=== PATIENT | female | born 1935 | race Caucasian/White ===

== ENCOUNTER 2018-08-06 07:35 | Day surgery (SDC) | payer MEDICARE, SELFPAY ==
[2018-08-06 08:46] VITALS: BP 138/84; PULSE 98; RESP 15; TEMP 36.3; O2SAT 95; BMI 20.5
[2018-08-06] MEDS: PROPARACAINE 0.5% OPHTH SOL 2 DROPS EYE-OP (08:47)
[2018-08-06] MEDS: CATARACT EYE COMPOUND (10 DROPS/SYRINGE) 3 DROPS EYE-OP (09:00)
--- NOTE | 2018-08-06 09:45 | P.OP.PRE_ITS ---
Pre-operative Note Interval Note Changes: No
--- NOTE | 2018-08-06 09:45 | PM.PREOP ---
Pre-operative Note Interval Note Changes: No
--- NOTE | 2018-08-06 09:46 | P.OP_ITS ---
Operative Date/Time/Diagnoses Pre-op diagnosis: Cataract Right eye Post-op diagnosis: same Procedure & Clinicians Procedure: Cataract Surgery Same procedure as scheduled: Yes Surgeon: Evgeny Hennessy Anesthesia Type: MAC +/- and Sedation Operative Notes Procedure in detail: Patient brought to the operating suite. Tetracaine drops placed in the right eye. Patient was prepped and draped in sterile manner. Wire lid speculum was placed in the eye. Betadine drops were placed on the eye. This was irrigated. Lidocaine jelly was placed on the eye. A paracentesis port was created with a side-port blade. 0.1 mL 1% preservative free lidocaine was injected into the anterior chamber. The anterior chamber was deepened with viscoelastic. 2.6 mm keratome was used to create a temporal clear corneal incision. Cystotome and Utrata forceps were used to create continuous tear capsulorrhexis. Balanced salt solution was used to hydro dissect the nucleus. The phacoemulsification handpiece was inserted and the nucleus was removed using the stop and chop technique. The irrigation aspiration handpiece was inserted and the remaining cortex was removed. Anterior chamber was deepened with viscoelastic. An Castorena ZCB00 intraocular lens with a power of 20.5 was injected into the capsular bag. Irrigation aspiration handpiece was inserted and the remaining viscoelastic was removed. Incision was hydrated with balanced salt solution and found to be leak free with pressure with Weck- Vira sponges. 0.1 mL Vigamox injected anterior chamber. 0.3 mL Kenalog 10 mg was injected subconjunctivally. Lid speculum was removed. The patient left the operating room in excellent condition. Complications: none Condition: stable Disposition: same day surgery
--- NOTE | 2018-08-06 09:54 | SUR.OPER ---
Supine on eye stretcher, head on extension cradle secured with tape. Arms tucked at sides with blanket. Pillow under knees.
[2018-08-06] MEDS: PHENYLEPHRINE/LIDOCAINE VIAL (OR) 0.2 ML EYE-OP (09:58)
[2018-08-06] MEDS: MOXIFLOXACIN OPHTH DROPS 3 ML BOTTLE 2 DROPS INJ (09:58)
[2018-08-06] MEDS: LIDOCAINE JELLY 2% 5 ML 1 APPLIC TOP (09:59)
[2018-08-06] MEDS: TRIAMCINOLONE 50 MG/5 ML VIAL INJ (09:59)
[2018-08-06] MEDS: CHONDROIDTIN/SOD HYALURONATE 1.05 ML SYRINGE INTRAOCULA (09:59)
[2018-08-06] MEDS: BALANCED SALT IRRIG SOLN NO.2 500 ML, EPINEPHrine 1 MG IRR (10:00)
[2018-08-06] MEDS: TETRACAINE 0.5% OPHTH DROPS 15 ML 2 DROPS EYE-RIGHT (10:00)
[2018-08-06 10:12] VITALS: BP 124/73; PULSE 88; RESP 16; TEMP 36.7; O2SAT 98
[2018-08-06 10:25] VITALS: BP 121/74; PULSE 97; RESP 18; O2SAT 96
--- NOTE | 2018-08-06 10:33 | SUR.PHASEII ---
pt pleasant and cooperative. denies any complaints. dressed herself and has a coffee to go . d/trish with volunteer in wheelchair.
== END 2018-08-06 10:33 ==
LOC: OR 07:36
PROVIDERS: PCP Family Medicine; Visit Provider Ophthalmology
DX: H25.11 Age-related nuclear cataract, right eye (principal); I49.9 Cardiac arrhythmia, unspecified
CPT/HCPCS: J0171; J2250; J3010; J3301

== ENCOUNTER 2018-08-20 10:02 | Day surgery (SDC) | payer MEDICARE, SELFPAY ==
[2018-08-20 11:32] VITALS: BP 139/70; PULSE 73; RESP 16; TEMP 36.2; O2SAT 96; BMI 20.6
[2018-08-20] MEDS: PROPARACAINE 0.5% OPHTH SOL 2 DROPS EYE-OP (11:41)
[2018-08-20] MEDS: CATARACT EYE COMPOUND (10 DROPS/SYRINGE) 3 DROPS EYE-OP (11:50)
--- NOTE | 2018-08-20 12:23 | P.OP.PRE_ITS ---
Pre-operative Note Interval Note Changes: No
--- NOTE | 2018-08-20 12:23 | PM.PREOP ---
Pre-operative Note Interval Note Changes: No
--- NOTE | 2018-08-20 12:24 | P.OP_ITS ---
Operative Date/Time/Diagnoses Pre-op diagnosis: Cataract Left eye Post-op diagnosis: same Procedure & Clinicians Surgeon: Evgeny Hennessy Anesthesia Type: MAC +/- and Sedation Operative Notes Procedure in detail: Patient brought to the operating suite. Tetracaine drops placed in the left eye. Patient was prepped and draped in sterile manner. Wire lid speculum was placed in the eye. Betadine drops were placed on the eye. This was irrigated. Lidocaine jelly was placed on the eye. A paracentesis port was created with a side-port blade. 0.1 mL 1% preservative free lidocaine was injected into the anterior chamber. The anterior chamber was deepened with viscoelastic. 2.6 mm keratome was used to create a temporal clear corneal incision. Cystotome and Utrata forceps were used to create continuous tear capsulorrhexis. Balanced salt solution was used to hydro dissect the nucleus. The phacoemulsification handpiece was inserted and the nucleus was removed using the stop and chop technique. The irrigation aspiration handpiece was inserted and the remaining cortex was removed. Anterior chamber was deepened with viscoelastic. An Castorena ZCB00 intraocular lens with a power of 20.5 was injected into the capsular bag. Irrigation aspiration handpiece was inserted and the remaining viscoelastic was removed. Incision was hydrated with balanced salt solution and found to be leak free with pressure with Weck- Vira sponges. 0.1 mL Vigamox injected anterior chamber. 0.3 mL Kenalog 10 mg was injected subconjunctivally. Lid speculum was removed. The patient left the operating room in excellent condition. Complications: none Condition: stable Disposition: same day surgery
[2018-08-20] MEDS: LIDOCAINE JELLY 2% 5 ML 1 APPLIC TOP (12:38)
[2018-08-20] MEDS: CHONDROIDTIN/SOD HYALURONATE 1.05 ML SYRINGE INTRAOCULA (12:38)
[2018-08-20] MEDS: MOXIFLOXACIN OPHTH DROPS 3 ML BOTTLE 2 DROPS INJ (12:38)
[2018-08-20] MEDS: PHENYLEPHRINE/LIDOCAINE VIAL (OR) 0.2 ML EYE-OP (12:38)
[2018-08-20] MEDS: TETRACAINE 0.5% OPHTH DROPS 15 ML 2 DROPS EYE-LEFT (12:39)
[2018-08-20] MEDS: BALANCED SALT IRRIG SOLN NO.2 500 ML, EPINEPHrine 1 MG IRR (12:39)
[2018-08-20] MEDS: TRIAMCINOLONE 50 MG/5 ML VIAL INJ (12:39)
[2018-08-20 12:59] VITALS: BP 120/74; PULSE 92; RESP 16; TEMP 36.7; O2SAT 96
== END 2018-08-20 13:08 ==
PROVIDERS: PCP Family Medicine; Visit Provider Ophthalmology
DX: H25.12 Age-related nuclear cataract, left eye (principal)
CPT/HCPCS: J0171; J2250; J3010; J3301

== ENCOUNTER → 2018-12-30 12:12 | Outpatient (CLI) | payer MEDICARE, SELFPAY ==
--- NOTE | 2018-12-30 | DI.US.S_ITS ---
PROCEDURE: US ABDOMEN COMPLETE INDICATIONS: PELVIC MASS TECHNIQUE: Real-time scanning was performed of the abdominal and retroperitoneal organs, with image documentation. COMPARISON: [facility], CT, ABDOMEN/PELVIS WITH CONTRAST, 12/08/2013, 11:53. FINDINGS: Liver: Liver is normal in size and homogeneous in echotexture. Gallbladder: Removed. Biliary ducts: Intrahepatic bile ducts are non-dilated. Extrahepatic bile duct caliber measures 7 mm. Normal is 6-7 mm or less in diameter, or 10 mm or less post-cholecystectomy. Pancreas: Visualized portions of the pancreas are sonographically normal. Spleen: Spleen is normal in size and homogeneous in echotexture. Kidneys: Kidneys are normal in size and echotexture. Right kidney measures 9.7 cm long; left kidney measures 10.4 cm long. No hydronephrosis or nephrolithiasis. No solid masses. The renal cortex measures within normal limits for thickness. Aorta: Visualized aorta is normal in caliber at less than 3 cm. Iliacs: Proximal common iliac arteries are normal in caliber at less than 2.5 cm. IVC: Intrahepatic inferior vena cava is patent. Miscellaneous: No free abdominal fluid. IMPRESSION: No masses are seen. Status post cholecystectomy, without biliary dilatation. Dictated by: Mo Herndon M.D. on 12/30/2018 at 12:11 Approved by: Mo Herndon M.D. on 12/30/2018 at 12:11
--- NOTE | 2018-12-30 | DI.US.S_ITS ---
PROCEDURE: US PELVIC COMPLETE INDICATIONS: PELVIC MASS TECHNIQUE: Real-time scanning was performed of the pelvic organs, with image documentation. Additional endovaginal scanning was necessary due to incomplete visualization of the adnexal and endometrial structures by transabdominal scanning. COMPARISON: [facility], , US ABDOMEN COMPLETE, 12/30/2018, 12:39. FINDINGS: Transabdominal scanning: Limited scanning through the kidneys shows no hydronephrosis. No pathologic free abdominal or pelvic fluid. Endovaginal scanning: Uterus: Prior hysterectomy. Ovaries: Ovaries not identified. No adnexal masses seen. IMPRESSION: Limited exam demonstrating no sonographically visible pelvic mass. If indicated CT could be performed for further assessment. Dictated by: Inocente Gibson [facility] Interpreted: Luca Ford MD on 12/30/2018 at 13:36 Approved by: Luca Ford M.D. on 12/30/2018 at 14:19
== END ==
PROVIDERS: PCP Family Medicine; Visit Provider Family Medicine
DX: R19.07 Generalized intra-abdominal and pelvic swelling, mass and lump (principal); Z90.49 Acquired absence of other specified parts of digestive tract; Z90.710 Acquired absence of both cervix and uterus
CPT/HCPCS: 76700; 76830; 76856

== ENCOUNTER → 2019-09-01 14:37 | Outpatient (CLI) | payer MEDICARE, SELFPAY ==
--- NOTE | 2019-09-01 | DI.ECHO.S_ITS ---
[place] [facility]---------+ [facility] +---------+ : : [address] : [place] [address] : : : : [id number] : : : : Phone: [phone]+ Echocardiogram Report + + :Name: JANICE CORTEZ Study Date: 09/01/2019 Height: 64 in : :[facility] Weight: 119 lb : : Gender: Female BSA: 1.6 m2 : :: 1935 Age: 84 yrs BP: 130/70 mmHg: :Reason For Study: Atrial fibrillation : : Performed By: Cailin Tovar : :Referring: NESTOR GIVENS : + + Interpretation Summary The left ventricle is normal in size. Left ventricular ejection fraction is estimated to be 55 +/- 5%. The right ventricle is grossly normal size. The right ventricular systolic function is normal. The left atrium is severely dilated. There is mild to moderate mitral regurgitation. There is mild to moderate aortic regurgitation. The right ventricular systolic pressure is estimated to be at least 26 mmHg based on an estimated right atrial pressure of 3 mm Hg. Procedure: A two-dimensional transthoracic echocardiogram with color flow and Doppler was performed. The study quality was technically adequate. There is no prior echocardiogram noted for this patient. The patient was in atrial fibrillation with heart rates between 78-112 bpm during the exam. Left Ventricle: The left ventricle is normal in size. There is normal left ventricular wall thickness. There is no thrombus. Left ventricular ejection fraction is estimated to be 55 +/- 5%. There are no focal wall motion abnormalities. Diastolic function could not be accurately assessed due to atrial fibrillation. Right Ventricle: The right ventricle is grossly normal size. The right ventricular systolic function is normal. Atria: The left atrium is severely dilated. The right atrium is moderately dilated. The interatrial septum is intact with no evidence for an atrial septal defect. Mitral Valve: The mitral valve leaflets appear mildly thickened, but open well. There is mild to moderate mitral regurgitation. Aortic Valve: The aortic valve is trileaflet. The aortic valve opens well. The aortic valve is mildly calcified. There is no aortic valve stenosis. There is mild to moderate aortic regurgitation. Tricuspid Valve: The tricuspid valve is normal in structure and function. There is trace tricuspid regurgitation. The right ventricular systolic pressure is estimated to be at least 26 mmHg based on an estimated right atrial pressure of 3 mm Hg. Pulmonic Valve: The pulmonic valve is not well seen, but is grossly normal. There is trace pulmonic regurgitation. Great Vessels: The aortic root is normal size. The ascending aorta could not be visualized. The aortic arch is normal in size. The IVC is of normal diameter and collapses greater than 50% with a sniff. This suggests a low right atrial pressure of 3 mm Hg. Pericardium/ Pleura There is no pericardial effusion. There is no pleural effusion. MMode/2D Measurements & Calculations LVIDd: 4.5 cm Ao root diam: 3.1 cm LVIDs: 3.4 cm Aortic Jxn: 2.5 cm FS: 25.1 % Ao Arch Diam (Prox Trans): 2.9 cm EPSS: 0.75 cm IVSd: 0.95 cm LVPWd: 0.99 cm LV grier. diameter/BSA (cm/m^2): 2.9 LV sys. diameter/BSA (cm/m^2): 2.2 LA dimension: 3.9 cm RA long axis: 5.4 cm LA A2 area: 23.4 cm2 RA area: 20.9 cm2 LA A4 area: 23.2 cm2 RA vol: 68.8 ml LA length (vol): 5.4 cm RA : 43.9 ml/m2 LA vol: 84.8 ml IVC diam: 1.1 cm LA vol index: 54.0 ml/m2 RVDd major: 6.1 cm RVD1 (basal): 3.7 cm RVD2 (mid): 3.0 cm Doppler Measurements & Calculations Ao V2 max: 165.1 cm/sec AI P1/2t: 451.9 msec Ao V2 mean: 112.7 cm/sec AI dec slope: 244.4 cm/sec2 Ao max P.9 mmHg Ao mean P.8 mmHg Ao V2 VTI: 33.1 cm MV E max dora: 105.8 cm/sec TR max dora: 240.7 cm/sec MV A max dora: 36.3 cm/sec TR max P.2 mmHg MV E/A: 2.9 PA V2 max: 85.1 cm/sec MV dec time: 0.20 sec PA V2 mean: 60.7 cm/sec MV P1/2t: 58.1 msec PA mean P.6 mmHg PA Accel Time: 0.11 sec MV P1/2t max dora: 106.1 cm/sec MVA(P1/2t): 3.8 cm2 Reading Physician:10:48 AM
== END ==
PROVIDERS: PCP Family Medicine; Visit Provider Internal Medicine Cardiovascular Disease
DX: I08.0 Rheumatic disorders of both mitral and aortic valves; I48.20 Chronic atrial fibrillation, unspecified
CPT/HCPCS: 93306

== ENCOUNTER → 2019-12-02 12:43 | Outpatient (CLI) | payer MEDICARE, SELFPAY ==
--- NOTE | 2019-12-02 | DI.RAD.S_ITS ---
PROCEDURE: XR CHEST 2V INDICATIONS: COUGH TECHNIQUE: 2 views of the chest were acquired. COMPARISON: None. FINDINGS: Surgical changes and devices: None. Lungs and pleura: Lungs are clear. No pleural effusions or pneumothorax. Lungs are hyperinflated with mild flattening of the hemidiaphragms. Mediastinum: Mediastinal contours are normal. Heart size is normal. Bones and chest wall: No suspicious bony abnormalities. Soft tissues appear unremarkable. IMPRESSION: Hyperinflation suggestive of COPD. Dictated by: Elizabeth Villela M.D. on 12/02/2019 at 16:20 Approved by: Elizabeth Villela M.D. on 12/02/2019 at 16:22
[2019-12-02 13:22] LABS: Alanine Aminotransferase 20 IU/L (<35); Albumin 4.5 g/dL (3.5-5.0); Albumin Globulin Ratio 1.5 (1.0-2.8); Alkaline Phosphatase 83 U/L (38-126); Aspartate Aminotransferase 29 IU/L (14-36); BUN Creatinine Ratio 18.3 (6-22); Bilirubin Total 0.6 mg/dL (0.2-1.3); Blood Urea Nitrogen 11 mg/dL (7-17); Calcium 9.5 mg/dL (8.4-10.2); Carbon Dioxide 31 mmol/L (22-32); Chloride 100 mmol/L (98-107); Estimated Glomerular Filt Rate > 60.0 mL/min (>60); Globulin 3.1 g/dL (1.7-4.1); Glucose 97 mg/dL (80-110); HEMOLYSIS < 15 (0-50); Potassium 3.7 mmol/L (3.4-5.1); Sodium 138 mmol/L (137-145); Total Protein 7.6 g/dL (6.3-8.2)
--- NOTE | 2019-12-02 13:45 | DI.CT.S_ITS ---
PROCEDURE: CT ABDOMEN PELVIS W CON INDICATIONS: Unspecified abdominal pain TECHNIQUE: After the administration of oral and intravenous contrast, 5 mm thick sections acquired from the diaphragms to the symphysis. 5 mm thick coronal and sagittal reformats were performed. For radiation dose reduction, the following was used: automated exposure control, adjustment of mA and/or kV according to patient size. COMPARISON: [facility], CT, ABDOMEN/PELVIS WITH CONTRAST, 12/08/2013, 11:53. FINDINGS: Image quality: Excellent. ABDOMEN: Lung bases: Scattered subsegmental atelectasis and/or scarring. No focal consolidation. Heart size is enlarged. Solid organs: Hepatic steatosis. Diffuse presumed calcified granuloma sequela seen within the liver and spleen Gallbladder surgically absent. Biliary system is non-dilated. However, there is metallic clip present within the distal common bile duct for example image 30/2. This appears new since the prior CT. Pancreas enhances normally. Spleen is normal in size and enhancement. No adrenal nodules. Kidneys are normal in size and enhancement, without hydronephrosis. Peritoneum and bowel: Stomach, small bowel, and colon loops are normal in caliber and wall thickness. Incidental colonic diverticula seen No free fluid or air. Normal appendix. Large amount of stool. Nodes and vessels: No retroperitoneal or mesenteric adenopathy. Aorta and inferior vena cava are normal in caliber. Miscellaneous: No ventral hernias. PELVIS: Genitourinary: Bladder grossly unremarkable. Miscellaneous: No inguinal hernias or adenopathy. Bones: No suspicious bony lesions. No vertebral body compression fractures. Spondylosis and levocurvature of the visualized spine. IMPRESSION: Metallic clip seen within (or closely abutting) the distal common bile duct however minimal if any bile duct dilatation. This may indicate extraluminal location. Finding is new since the prior study, recommend clinical correlation and with LFTs. Hepatic steatosis Normal appendix No bowel obstruction. Large amount of stool Additional chronic and incidental findings as above. Dictated by: Christiano Hatfield M.D. on 12/02/2019 at 14:35 Approved by: Christiano Hatfield M.D. on 12/02/2019 at 14:45
== END ==
PROVIDERS: PCP Family Medicine; Visit Provider Family Medicine
DX: R10.9 Unspecified abdominal pain (principal); R05 Cough; K59.00 Constipation, unspecified; R19.00 Intra-abdominal and pelvic swelling, mass and lump, unspecified site; K57.90 Diverticulosis of intestine, part unspecified, without perforation or abscess without bleeding; K76.0 Fatty (change of) liver, not elsewhere classified; I51.7 Cardiomegaly; Z90.49 Acquired absence of other specified parts of digestive tract
CPT/HCPCS: 36415; 71046; 74177; 80053

== ENCOUNTER → 2020-01-01 10:17 | Outpatient (CLI) | payer MEDICARE, SELFPAY ==
--- NOTE | 2020-01-01 10:25 | DI.RAD.S_ITS ---
PROCEDURE: XR ANKLE RT MIN 3V INDICATIONS: RIGHT ANKLE PAIN TECHNIQUE: 3 views of the ankle were acquired. COMPARISON: None. FINDINGS: Bones: No fractures or dislocations. Ankle mortise is normally aligned. No suspicious bony lesions. Soft tissues: No tibiotalar joint effusion. Achilles tendon appears normal. IMPRESSION: No trauma found. Source of pain is not identified. Dictated by: Luca Ford M.D. on 01/01/2020 at 10:47 Approved by: Luca Ford M.D. on 01/01/2020 at 10:48
== END ==
PROVIDERS: PCP Family Medicine; Referring Provider Family Medicine; Visit Provider Family Medicine
DX: M25.571 Pain in right ankle and joints of right foot (principal); G89.29 Other chronic pain
CPT/HCPCS: 73610

== ENCOUNTER → 2021-02-14 11:38 | Outpatient (CLI) | payer MEDICARE, SELFPAY ==
[2021-02-15 09:33] LABS: Alanine Aminotransferase 23 IU/L (<35); Albumin 3.9 g/dL (3.5-5.0); Albumin Globulin Ratio 1.5 (1.0-2.8); Alkaline Phosphatase 71 U/L (38-126); Aspartate Aminotransferase 45 IU/L (14-36); BUN Creatinine Ratio 18.2 (6-22); Bilirubin Total 0.4 mg/dL (0.2-1.3); Blood Urea Nitrogen 12 mg/dL (7-17); Calcium 9.5 mg/dL (8.4-10.2); Carbon Dioxide 31 mmol/L (22-32); Chloride 102 mmol/L (98-107); Estimated Glomerular Filt Rate > 60.0 mL/min (>60); Globulin 2.6 g/dL (1.7-4.1); Glucose 82 mg/dL (80-110); HEMOLYSIS < 15 (0-50); Sodium 140 mmol/L (137-145); Total Protein 6.5 g/dL (6.3-8.2)
[2021-02-15 14:41] LABS: Digoxin < 0.4 ng/mL (0.8-2.0)
== END ==
PROVIDERS: PCP Family Medicine; Visit Provider Internal Medicine Cardiovascular Disease
DX: I48.20 Chronic atrial fibrillation, unspecified (principal)
CPT/HCPCS: 80053; 80162

== ENCOUNTER → 2022-03-02 10:56 | Outpatient (CLI) | payer MEDICARE, SELFPAY ==
[2022-03-02 19:46] LABS: TSH w/ Reflex to FT4 2.32 uIU/mL (0.47-4.68)
[2022-03-02 20:12] LABS: Vitamin B12 558 pg/mL (239-931)
[2022-03-06 14:14] LABS: Albumin 3.8 g/dL (2.9-4.4); Alpha-1-Globulin 0.3 g/dL (0.0-0.4); Alpha-2-Globulin 0.7 g/dL (0.4-1.0); Gamma Globulin 0.8 g/dL (0.4-1.8); Globulin Total 2.8 g/dL (2.2-3.9); Protein, Total 6.6 g/dL (6.0-8.5)
== END ==
PROVIDERS: PCP Family Medicine; Visit Provider Family Medicine
DX: K59.00 Constipation, unspecified (principal); G62.9 Polyneuropathy, unspecified; M25.571 Pain in right ankle and joints of right foot; G89.29 Other chronic pain
CPT/HCPCS: 82607; 84155; 84165; 84443

== ENCOUNTER → 2022-09-20 10:46 | Outpatient (CLI) | payer MEDICARE, SELFPAY ==
[2022-09-20 20:49] LABS: Digoxin 0.5 ng/mL (0.8-2.0)
[2022-09-20 20:58] LABS: Alanine Aminotransferase 35 IU/L (<35); Albumin Globulin Ratio 1.4 (1.0-2.8); Alkaline Phosphatase 79 U/L (38-126); Aspartate Aminotransferase 35 IU/L (14-36); BUN Creatinine Ratio 15.8 (6-22); Bilirubin Total 0.9 mg/dL (0.2-1.3); Blood Urea Nitrogen 12 mg/dL (7-17); Calcium 9.5 mg/dL (8.4-10.2); Carbon Dioxide 31 mmol/L (22-32); Chloride 101 mmol/L (98-107); Cholesterol 146 mg/dL (140-199); Estimated Glomerular Filt Rate > 60 mL/min (>60); Globulin 2.8 g/dL (1.7-4.1); Glucose 92 mg/dL (80-110); HDL Cholesterol 60 mg/dL (40-60); HEMOLYSIS < 15 (0-50); LDL Cholesterol Calculated 74 mg/dL (<100); Sodium 138 mmol/L (137-145); Total Protein 6.8 g/dL (6.3-8.2); Triglycerides 60 mg/dL (35-150)
== END ==
PROVIDERS: PCP Family Medicine; Visit Provider Internal Medicine Cardiovascular Disease
DX: E78.5 Hyperlipidemia, unspecified (principal); I48.92 Unspecified atrial flutter; I48.20 Chronic atrial fibrillation, unspecified
CPT/HCPCS: 80053; 80061; 80162

== ENCOUNTER → 2023-07-10 08:45 | Outpatient (CLI) | payer MEDICARE, SELFPAY ==
[2023-07-10 21:06] LABS: Alanine Aminotransferase 145 IU/L (<35); Albumin 3.5 g/dL (3.5-5.0); Albumin Globulin Ratio 1.3 (1.0-2.8); Alkaline Phosphatase 112 U/L (38-126); Aspartate Aminotransferase 51 IU/L (14-36); BUN Creatinine Ratio 13.8 (6-22); Bilirubin Total 0.7 mg/dL (0.2-1.3); Blood Urea Nitrogen 9 mg/dL (7-17); Calcium 9.3 mg/dL (8.4-10.2); Carbon Dioxide 33 mmol/L (22-32); Chloride 98 mmol/L (98-107); Estimated Glomerular Filt Rate > 60 mL/min (>60); Globulin 2.7 g/dL (1.7-4.1); Glucose 107 mg/dL (80-110); HEMOLYSIS < 15 (0-50); Potassium 3.7 mmol/L (3.4-5.1); Sodium 137 mmol/L (137-145); Total Protein 6.2 g/dL (6.3-8.2)
[2023-07-10 22:12] LABS: Clostridium Difficile Tox PCR Negative for C. diff (Negative)
[2023-07-12 16:51] LABS: C difficie Toxins A and B, EIA Negative (Negative)
== END ==
PROVIDERS: PCP Family Medicine; Visit Provider Family Medicine
DX: E86.0 Dehydration (principal); K52.1 Toxic gastroenteritis and colitis; R19.7 Diarrhea, unspecified; T36.95XA Adverse effect of unspecified systemic antibiotic, initial encounter
CPT/HCPCS: 80053; 87324; 87493

== ENCOUNTER 2023-07-15 13:58 | Emergency (ER) | payer MEDICARE, SELFPAY ==
[2023-07-15 13:59] VITALS: BP 177/92; PULSE 110; RESP 16; TEMP 37.2; O2SAT 97; BMI 20.5
--- NOTE | 2023-07-15 14:05 | DI.RAD.S_ITS ---
PROCEDURE: XR WRIST RT MIN 3V INDICATIONS: fall, rt wrist red and swollen, painful TECHNIQUE: 4 views of the wrist were acquired. COMPARISON: None. FINDINGS: Bones: No fractures or dislocations. No suspicious bony lesions. Advanced degenerative change most pronounced at the 1st CMC joint and DRUJ. Scaphoid view: Intact. Soft tissues: No suspicious soft tissue calcifications. Chondrocalcinosis. IMPRESSION: No acute osseous abnormality. Dictated by: Kee Lozano M.D. on 07/15/2023 at 14:37 Approved by: eKe Lozano M.D. on 07/15/2023 at 14:38
[2023-07-15 14:42] VITALS: PULSE 84
--- NOTE | 2023-07-15 14:53 | ED_ITS ---
HPI - Extremity Injury (Upper) General Chief Complaint: Extremity Injury, Upper Stated Complaint: R/ wrist injury Time Seen by Provider: 07/15/23 14:45 History of Present Illness HPI narrative: 88-year-old female presents for evaluation of right wrist pain and swelling. Patient was taking out the trash when she slipped, falling backwards and landing on her bottom. She states that she caught her fall with her hands, particularly her right hand. Did not hit her head, did not lose consciousness. She is on Eliquis for atrial fibrillation. Patient states that she initially did not notice pain, however several hours later began to notice swelling and worsening pain in her right wrist. She got a wrist brace from a local pharmacy and presented for x-rays to make sure that the wrist was not broken. 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 Related Data Home Medications Medication Instructions Recorded Confirmed apixaban 2.5 mg tablet (Eliquis) 2.5 mg PO BID 03/02/22 07/09/23 atorvastatin 40 mg tablet 40 mg PO DAILY 03/02/22 07/09/23 metoprolol succinate 50 mg See Rx Instructions .Route .COMPLEX 03/02/22 07/09/23 tablet,extended release 24 hr digoxin 125 mcg (0.125 mg) tablet 0.25 mg PO 12/11/22 07/09/23 Previous Rx's Medication Instructions Recorded vancomycin 125 mg capsule 125 mg PO QID #40 caps 07/09/23 Allergies Allergy/AdvReac Type Severity Reaction Status Date / Time codeine Allergy Mild EXTREME Verified 07/09/23 14:45 HEADACHE Review of Systems Review of Systems Narrative: All other systems negative except as marked Musculoskeletal Comments: Reports: Right wrist pain, right wrist swelling Patient History Medical History (Updated 07/15/23 @ 14:54 by Janet Hooker MD) At risk of UTI Cough Postmenopausal HRT (hormone replacement therapy) Screening for breast cancer Screening for osteoporosis Therapeutic drug monitoring Unspecified abdominal pain Urethral caruncle Social History household members: spouse Smoking Status: Never smoker additional social history: lives with her who is in a wheelchair with early Dementia. Daughter name is Melva-she works at [employer] 06/2023 Smoking Status: Never smoker Exam Initial Vital Signs Initial Vital Signs: Vital Signs Temperature 98.9 F 07/15/23 13:59 Pulse Rate 110 H 07/15/23 13:59 Respiratory Rate 16 07/15/23 13:59 Blood Pressure 177/92 H 07/15/23 13:59 Pulse Oximetry 97 07/15/23 13:59 Oxygen Delivery Method Room Air 07/15/23 13:59 Const: Well-nourished, Well-developed, appears stated age Eyes: PERRL, EOMI, conjunctiva normal MSK: Swelling of R wrist, intact sensation, 2+ radial pulses bilaterally Skin: Warm, Dry, intact, moderate swelling of wrist joint Neuro: AO x3, CN II-XII grossly intact, moves all extremities Psych: affect normal, mood normal, not suicidal, not homicidal Course Course Course Narrative: Well appearing patient with wrist pain and swelling fter a fall. XR negative for acute findings. Neurovascularly intact. Already in splint. RICE instructions advised at bedside. ED return precautions discussed at bedside. Patient expressed understanding of the plan and is in agreement at this time. All questions answered at the time of discharge. Orders Ordered: ED Orders 07/15/23 14:05 XR wrist RT min 3V Stat Vital Signs Vital signs: Vital Signs - 8 hr 07/15/23 13:59 07/15/23 14:42 Temperature 98.9 F Pulse Rate 110 H Pulse Rate [Right Brachial] 84 Respiratory Rate 16 Blood Pressure 177/92 H Pulse Oximetry 97 Oxygen Delivery Method Room Air Discharge Plan Departure Patient Disposition: Home Clinical Impression: Sprain and strain of wrist Instructions: DI for Wrist Sprain Prescriptions: No Action triamcinolone acetonide [Kenalog] 40 mg/mL suspension 80 mg intra-articular ONCE Qty: 2 0RF vancomycin 125 mg capsule 125 mg PO QID Qty: 40 0RF Rx Instructions: set alarm to take this medication every 5-6 hours. (4 times per day) Eliquis 2.5 mg tablet 2.5 mg PO BID metoprolol succinate 50 mg tablet extended release 24 hr See Rx Instructions .ROUTE .COMPLEX Rx Instructions: Take one-half tablet QAM and Take One tablet QPM atorvastatin 40 mg tablet 40 mg PO DAILY digoxin 125 mcg (0.125 mg) tablet 0.25 mg PO Referrals: Umair Hahn MD [Primary Care Provider] - Stand Alone Forms: Patient Portal/API
[2023-07-15 14:57] VITALS: BP 168/78; PULSE 80; RESP 17; O2SAT 97
== END 2023-07-15 14:58 | disposition home or self-care (01) ==
PROVIDERS: Emergency Provider Emergency Medicine; PCP Family Medicine
DX: S63.501A Unspecified sprain of right wrist, initial encounter (principal); S66.911A Strain of unspecified muscle, fascia and tendon at wrist and hand level, right hand, initial encounter; W01.0XXA Fall on same level from slipping, tripping and stumbling without subsequent striking against object, initial encounter; Z79.01 Long term (current) use of anticoagulants
CPT/HCPCS: 73110; 99281; 99283

== ENCOUNTER → 2023-08-08 11:29 | Outpatient (CLI) | payer MEDICARE, SELFPAY ==
[2023-08-08 20:47] LABS: BUN Creatinine Ratio 21.6 (6-22); Blood Urea Nitrogen 16 mg/dL (7-17); Calcium 9.7 mg/dL (8.4-10.2); Carbon Dioxide 29 mmol/L (22-32); Chloride 101 mmol/L (98-107); Estimated Glomerular Filt Rate > 60 mL/min (>60); Glucose 96 mg/dL (80-110); HEMOLYSIS 24 (0-50); Potassium 4.1 mmol/L (3.4-5.1); Sodium 137 mmol/L (137-145)
== END ==
PROVIDERS: PCP Family Medicine; Visit Provider Family Medicine
DX: I50.9 Heart failure, unspecified (principal)
CPT/HCPCS: 80048

== ENCOUNTER → 2023-10-02 13:35 | Outpatient (CLI) | payer MEDICARE, SELFPAY ==
[2023-10-02 19:34] LABS: Alanine Aminotransferase 31 IU/L (<35); Albumin 3.7 g/dL (3.5-5.0); Albumin Globulin Ratio 1.4 (1.0-2.8); Alkaline Phosphatase 97 U/L (38-126); Aspartate Aminotransferase 32 IU/L (14-36); Bilirubin Total 0.7 mg/dL (0.2-1.3); Bilirubin Unconjugated 0.4 mg/dL (0.0-1.1); Globulin 2.6 g/dL (1.7-4.1); HEMOLYSIS < 15 (0-50); NT-proBNP (BNP-Adult 18+) 1370 pg/mL (<450); Total Protein 6.3 g/dL (6.3-8.2)
[2023-10-02 19:42] LABS: BUN Creatinine Ratio 17.9 (6-22); Blood Urea Nitrogen 15 mg/dL (7-17); Calcium 9.5 mg/dL (8.4-10.2); Carbon Dioxide 29 mmol/L (22-32); Chloride 99 mmol/L (98-107); Estimated Glomerular Filt Rate > 60 mL/min (>60); Glucose 150 mg/dL (80-110); HEMOLYSIS < 15 (0-50); Sodium 134 mmol/L (137-145)
[2023-10-04 04:08] LABS: HBsAg Screen Negative (Negative); Hepatitis A Antibody IgM Negative (Negative); Hepatitis B Core Antibody Negative (Negative); Hepatitis B Core Antibody IgM Negative (Negative); Hepatitis C Antibody Non Reactive (Non Reactive)
[2023-10-04 16:38] LABS: Hep C Virus Ab w/Reflex Quant NEGATIVE s/c (NEGATIVE); Hepatitis B Surface Antigen NEGATIVE s/c (NEGATIVE)
[2023-10-06 06:19] LABS: Hepatitis B Surf Ab Qualitativ Non Reactive (.)
== END ==
PROVIDERS: Family Medicine; PCP Family Medicine; Visit Provider Family Medicine
DX: R74.01 Elevation of levels of liver transaminase levels (principal); I21.4 Non-ST elevation (NSTEMI) myocardial infarction; K52.1 Toxic gastroenteritis and colitis; T36.95XA Adverse effect of unspecified systemic antibiotic, initial encounter; I51.7 Cardiomegaly; S63.509A Unspecified sprain of unspecified wrist, initial encounter; S66.919A Strain of unspecified muscle, fascia and tendon at wrist and hand level, unspecified hand, initial encounter; R19.7 Diarrhea, unspecified; I48.19 Other persistent atrial fibrillation
CPT/HCPCS: 80048; 80074; 80076; 83880; 86704; 86706; 86803; 87340

== ENCOUNTER → 2024-01-15 10:49 | Outpatient (CLI) | payer MEDICARE, SELFPAY ==
[2024-01-15 19:08] LABS: BUN Creatinine Ratio 17.9 (6-22); Blood Urea Nitrogen 12 mg/dL (7-17); Calcium 9.5 mg/dL (8.4-10.2); Carbon Dioxide 32 mmol/L (22-32); Chloride 103 mmol/L (98-107); Estimated Glomerular Filt Rate > 60 mL/min (>60); Glucose 93 mg/dL (80-110); HEMOLYSIS < 15 (0-50); Potassium 3.7 mmol/L (3.4-5.1); Sodium 138 mmol/L (137-145)
[2024-01-15 19:35] LABS: Digoxin 0.7 ng/mL (0.8-2.0)
== END ==
PROVIDERS: PCP Family Medicine; Visit Provider Internal Medicine Cardiovascular Disease
DX: I48.20 Chronic atrial fibrillation, unspecified (principal)
CPT/HCPCS: 80048; 80162

== ENCOUNTER → 2024-02-18 13:29 | Outpatient (CLI) | payer MEDICARE, SELFPAY ==
--- NOTE | 2024-02-18 13:30 | DI.ECHO.S_ITS ---
[place] [facility]---------+ [facility] +---------+ : : [address] [place] : : : : [id number] : : : : Phone: [phone]+ Echocardiogram Report + + :Name: JANICE CORTEZ Study Date: 02/18/2024 Height: 64 in : :[facility] ReadingLocation: Weight: 120 lb : : Gender: Female BSA: 1.6 m2 : :: 1935 Age: 89 yrs BP: 175/87 mmHg: :Reason For Study: ATRIAL FIBRILLATION : :Ordering Physician: CHON, : :NESTOR Performed By: Eamon Brock : :Referring: NESTOR GIVENS : + + Interpretation Summary The patient was in atrial fibrillation with controlled ventricular rate during the exam. The left ventricle is normal in size. The ejection fraction is estimated to be 35-40%. Previously 45 to 50% with mild global hypokinesis. Left ventricular function has mildly worsened compared to the previous exam. There is mild to moderate global hypokinesis of the left ventricle. E/E' med: 12.0 Diastolic function could not be accurately assessed due to atrial fibrillation. The right ventricle is normal size. The right ventricular systolic function is normal. There is mild to moderate aortic regurgitation. Previously mild aortic regurgitation. There is mild luminal irregularity and echogenicity in the abdominal aorta, suggestive of aortic atherosclerotic disease. Mild atherosclerotic plaque(s) in the aortic arch. BP: 175/87 mmHg Procedure: A two-dimensional transthoracic echocardiogram with color flow and Doppler was performed. The study quality was technically adequate. Comparison is made with the echocardiogram of 07/04/2023. The patient was in atrial fibrillation with controlled ventricular rate during the exam. Left Ventricle: The left ventricle is normal in size. Left ventricular wall thickness is mildly increased. The ejection fraction is estimated to be 35- 40%. Left ventricular function has mildly worsened compared to the previous exam. There is mild to moderate global hypokinesis of the left ventricle. Diastolic function could not be accurately assessed due to atrial fibrillation. E/E' med: 12.0. Right Ventricle: The right ventricle is normal size. The right ventricular systolic function is normal. Atria: The left atrium is severely dilated. The left atrium has mildly increased in size since the prior echo exam. Right atrial size is normal. The interatrial septum grossly appears intact with no obvious evidence for an atrial septal defect. Mitral Valve: There is mild mitral annular calcification. There is no mitral valve stenosis. There is mild mitral regurgitation. Compared to the prior echo study, there has been no change in the severity of mitral regurgitation. Aortic Valve: The aortic valve is trileaflet. The aortic valve is mildly calcified. There is no aortic valve stenosis. There is mild to moderate aortic regurgitation. Compared to the prior echo study, there has been an increase in the severity of aortic regurgitation. Tricuspid Valve: The tricuspid valve is normal in structure and function. There is no tricuspid stenosis. There is trace tricuspid regurgitation. The right ventricular systolic pressure is estimated to be at least 27 mmHg based on an estimated right atrial pressure of 3 mm Hg. Pulmonic Valve: The pulmonic valve is not well visualized. There is no pulmonic valvular stenosis. There is no pulmonic valvular regurgitation. Great Vessels: The aortic root is normal size. The ascending aorta could not be visualized. There is mild luminal irregularity and echogenicity in the abdominal aorta, suggestive of aortic atherosclerotic disease. Mild atherosclerotic plaque(s) in the aortic arch. The IVC is of normal diameter and collapses greater than 50% with a sniff. This suggests a low right atrial pressure of 3 mm Hg. Pericardium/ Pleura There is no pericardial effusion. There is no pleural effusion. MMode/2D Measurements & Calculations LVIDd: 3.9 cm LVOT diam: 2.1 cm LVIDs: 3.3 cm Ao root diam: 3.0 cm FS: 16.6 % Ao Arch Diam (Prox Trans): 3.3 cm IVSd: 1.1 cm LVPWd: 1.5 cm LV grier. diameter/BSA (cm/m^2): 2.5 LV sys. diameter/BSA (cm/m^2): 2.1 LA A2 area: 24.0 cm2 RA long axis: 5.6 cm LA A4 area: 23.0 cm2 RA area: 17.6 cm2 LA length (vol): 5.9 cm RA vol: 47.1 ml LA vol: 78.9 ml RA : 29.9 ml/m2 LA vol index: 50.1 ml/m2 IVC diam: 1.3 cm RVD1 (basal): 3.1 cm RVD2 (mid): 2.6 cm TAPSE: 1.9 cm Doppler Measurements & Calculations Ao V2 max: 131.7 cm/sec LVOT Max Blaine: 91.8 cm/sec Ao V2 mean: 102.2 cm/sec LV V1 max P.4 mmHg Ao max P.0 mmHg LV V1 VTI: 17.4 cm Ao mean P.4 mmHg CARLENE(I,D): 2.1 cm2 Ao V2 VTI: 27.7 cm CARLENE(V,D): 2.4 cm2 sev ratio: 0.63 CARLENE indexed to BSA (cm^2/m^2): 1.4 MV E max blaine: 82.8 cm/sec TR max blaine: 244.4 cm/sec MV A max blaine: 20.1 cm/sec TR max P.9 mmHg MV E/A: 4.1 PA V2 max: 93.0 cm/sec Med Peak E' Blaine: 6.9 cm/sec PA V2 mean: 68.1 cm/sec E/E' med: 12.0 PA mean P.0 mmHg Lat Peak E' Blaine: 8.0 cm/sec PA pr(Accel): 23.1 mmHg E/E' lat: 10.4 E/e' average: 11.2 MV dec time: 0.19 sec SV(LVOT): 59.4 ml Reading Physician:01:10 PM
== END ==
LOC: ECHO 13:30
PROVIDERS: PCP Family Medicine; Referring Provider Internal Medicine Cardiovascular Disease; Visit Provider Internal Medicine Cardiovascular Disease
DX: I08.0 Rheumatic disorders of both mitral and aortic valves; I48.20 Chronic atrial fibrillation, unspecified
CPT/HCPCS: 93306

== ENCOUNTER → 2024-04-01 12:07 | Outpatient (CLI) | payer MEDICARE, SELFPAY ==
[2024-04-01 19:28] LABS: BUN Creatinine Ratio 20.2 (6-22); Blood Urea Nitrogen 17 mg/dL (7-17); Calcium 9.4 mg/dL (8.4-10.2); Carbon Dioxide 30 mmol/L (22-32); Chloride 103 mmol/L (98-107); Estimated Glomerular Filt Rate > 60 mL/min (>60); Glucose 80 mg/dL (80-110); HEMOLYSIS < 15 (0-50); Magnesium 2.1 mg/dL (1.6-2.3); Potassium 4.3 mmol/L (3.4-5.1); Sodium 137 mmol/L (137-145)
== END ==
PROVIDERS: PCP Family Medicine; Visit Provider Internal Medicine Cardiovascular Disease
DX: I50.22 Chronic systolic (congestive) heart failure (principal); I10 Essential (primary) hypertension
CPT/HCPCS: 80048; 83735

== ENCOUNTER → 2024-07-31 15:28 | Outpatient (CLI) | payer MEDICARE, SELFPAY | PROVIDERS: PCP Family Medicine; Visit Provider Physician Assistant Medical | DX: S81.801A Unspecified open wound, right lower leg, initial encounter (principal) | CPT/HCPCS: 87070; 87075; 87077; 87205 ==

== ENCOUNTER → 2024-08-18 10:33 | Outpatient (CLI) | payer MEDICARE, SELFPAY ==
[2024-08-18 20:36] LABS: Add Manual Diff / Slide Review NO; Basophils Absolute Auto 100 /uL (0-100); Basophils Percent Auto 0.9 % (0-2); Eosinophils Absolute Auto 400 /uL (0-450); Eosinophils Percent Auto 5.4 % (2-4); Hematocrit 38.2 % (36-46); Hemoglobin 12.8 g/dL (12.0-16.0); Lymphocytes Absolute Auto 1100 /uL (1100-4500); Lymphocytes Percent Auto 15.6 % (25-40); Mean Corpuscular HGB Conc 33.5 % (30-36); Mean Corpuscular Hemoglobin 30.4 PG (26-34); Mean Corpuscular Volume 90.6 fL (80-100); Monocytes Absolute Auto 700 /uL (0-900); Monocytes Percent Auto 9.8 % (3-14); Neutrophils Absolute Auto 4900 /uL (1500-7000); Neutrophils Percent Auto 68.3 % (50-75); Platelet Count 337 X10^3/uL (150-400); Red Blood Cell Count 4.22 X10^6/uL (4.0-5.2); Red Cell Distribution Width 13.3 % (11.6-14.8); White Blood Cell Count 7.2 X10^3/uL (4.5-11.0)
[2024-08-18 20:44] LABS: BUN Creatinine Ratio 18.6 (6-22); Blood Urea Nitrogen 13 mg/dL (7-17); Calcium 9.7 mg/dL (8.4-10.2); Carbon Dioxide 29 mmol/L (22-32); Chloride 102 mmol/L (98-107); Cholesterol 160 mg/dL (140-199); Digoxin 0.4 ng/mL (0.8-2.0); Estimated Glomerular Filt Rate > 60 mL/min (>60); Glucose 100 mg/dL (80-110); HDL Cholesterol 55 mg/dL (40-60); HEMOLYSIS < 15 (0-50); LDL Cholesterol Calculated 85 mg/dL (<100); Potassium 4.2 mmol/L (3.4-5.1); Sodium 135 mmol/L (137-145); Triglycerides 100 mg/dL (35-150)
[2024-08-18 20:54] LABS: NT-proBNP (BNP-Adult 18+) 2190 pg/mL (<450)
== END ==
PROVIDERS: PCP Family Medicine; Visit Provider Family Medicine
DX: R06.02 Shortness of breath (principal); Z51.81 Encounter for therapeutic drug level monitoring; E78.2 Mixed hyperlipidemia; R73.01 Impaired fasting glucose; I25.10 Atherosclerotic heart disease of native coronary artery without angina pectoris; I25.2 Old myocardial infarction; R79.89 Other specified abnormal findings of blood chemistry; I50.9 Heart failure, unspecified; I10 Essential (primary) hypertension; I51.7 Cardiomegaly; I35.1 Nonrheumatic aortic (valve) insufficiency; I34.0 Nonrheumatic mitral (valve) insufficiency
CPT/HCPCS: 80048; 80061; 80162; 83880; 85025

== ENCOUNTER → 2025-01-08 11:14 | Outpatient (CLI) | payer MEDICARE, SELFPAY ==
[2025-01-08 21:08] LABS: BUN Creatinine Ratio 18.3 (6-22); Blood Urea Nitrogen 15 mg/dL (7-17); Calcium 9.7 mg/dL (8.4-10.2); Carbon Dioxide 28 mmol/L (22-32); Chloride 99 mmol/L (98-107); Estimated Glomerular Filt Rate > 60 mL/min (>60); Glucose 114 mg/dL (80-110); HEMOLYSIS < 15 (0-50); Potassium 4.5 mmol/L (3.4-5.1); Sodium 135 mmol/L (137-145)
[2025-01-08 21:10] LABS: Digoxin 0.9 ng/mL (0.8-2.0)
[2025-01-08 21:17] LABS: NT-proBNP (BNP-Adult 18+) 839 pg/mL (<450)
== END ==
PROVIDERS: PCP Family Medicine; Visit Provider Family Medicine
DX: I25.10 Atherosclerotic heart disease of native coronary artery without angina pectoris (principal); I50.20 Unspecified systolic (congestive) heart failure; I11.0 Hypertensive heart disease with heart failure; R06.02 Shortness of breath
CPT/HCPCS: 80048; 80162; 83880

== ENCOUNTER → 2025-06-15 11:02 | Outpatient (CLI) | payer MEDICARE, SELFPAY ==
[2025-06-15 19:57] LABS: Add Manual Diff / Slide Review NO; Hematocrit 37.7 % (36-46); Hemoglobin 13.2 g/dL (12.0-16.0); Lymphocytes Absolute Auto 1200 /uL (1100-4500); Mean Corpuscular HGB Conc 35.0 % (30-36); Mean Corpuscular Hemoglobin 31.3 PG (26-34); Mean Corpuscular Volume 89.4 fL (80-100); Platelet Count 280 X10^3/uL (150-400)
[2025-06-15 20:03] LABS: Blood Urea Nitrogen 16 mg/dL (7-17); Calcium 9.8 mg/dL (8.4-10.2); Carbon Dioxide 28 mmol/L (22-32); Chloride 99 mmol/L (98-107); Cholesterol 146 mg/dL (140-199); Estimated Glomerular Filt Rate > 60 mL/min (>60); Glucose 104 mg/dL (70-99); HDL Cholesterol 48 mg/dL (40-60); HEMOLYSIS 21 (0-50); Potassium 4.7 mmol/L (3.4-5.1); Sodium 133 mmol/L (137-145); Triglycerides 90 mg/dL (35-150)
[2025-06-15 20:10] LABS: NT-proBNP (BNP-Adult 18+) 1020 pg/mL (<450)
[2025-06-15 20:11] LABS: Digoxin < 0.4 ng/mL (0.8-2.0)
== END ==
PROVIDERS: PCP Family Medicine; Visit Provider Family Medicine
DX: I25.10 Atherosclerotic heart disease of native coronary artery without angina pectoris (principal); R06.02 Shortness of breath; I10 Essential (primary) hypertension; I50.20 Unspecified systolic (congestive) heart failure; E78.2 Mixed hyperlipidemia; Z51.81 Encounter for therapeutic drug level monitoring; I25.2 Old myocardial infarction; I48.19 Other persistent atrial fibrillation
CPT/HCPCS: 80048; 80061; 80162; 83880; 85025

== ENCOUNTER → 2025-10-07 10:30 | Outpatient (CLI) | payer MEDICARE, SELFPAY ==
[2025-10-07 18:33] LABS: Hematocrit 38.8 % (36-46); Hemoglobin 13.1 g/dL (12.0-16.0); Mean Corpuscular HGB Conc 33.9 % (30-36); Mean Corpuscular Hemoglobin 30.1 PG (26-34); Mean Corpuscular Volume 89.1 fL (80-100); Platelet Count 266 X10^3/uL (150-400)
[2025-10-07 18:50] LABS: Alanine Aminotransferase 24 IU/L (<35); Albumin 4.0 g/dL (3.5-5.0); Albumin Globulin Ratio 1.5 (1.0-2.8); Alkaline Phosphatase 79 U/L (38-126); Blood Urea Nitrogen 15 mg/dL (7-17); Calcium 9.5 mg/dL (8.4-10.2); Carbon Dioxide 29 mmol/L (22-32); Chloride 102 mmol/L (98-107); Cholesterol 164 mg/dL (140-199); Estimated Glomerular Filt Rate > 60 mL/min (>60); Globulin 2.7 g/dL (1.7-4.1); Glucose 102 mg/dL (70-99); HDL Cholesterol 69 mg/dL (40-60); HEMOLYSIS 19 (0-50); Potassium 4.4 mmol/L (3.4-5.1); Sodium 138 mmol/L (137-145); Total Protein 6.7 g/dL (6.3-8.2); Triglycerides 73 mg/dL (35-150)
[2025-10-07 18:52] LABS: Digoxin 0.4 ng/mL (0.8-2.0)
== END ==
PROVIDERS: PCP Family Medicine; Visit Provider Internal Medicine Cardiovascular Disease
DX: I10 Essential (primary) hypertension (principal); I48.20 Chronic atrial fibrillation, unspecified; E78.5 Hyperlipidemia, unspecified
CPT/HCPCS: 80053; 80061; 80162; 85027

== ENCOUNTER → 2025-10-29 11:08 | Outpatient (CLI) | payer MEDICARE, SELFPAY ==
[2025-10-29 19:11] LABS: Hematocrit 41.9 % (36-46); Hemoglobin 14.0 g/dL (12.0-16.0); Mean Corpuscular HGB Conc 33.4 % (30-36); Mean Corpuscular Hemoglobin 29.5 PG (26-34); Mean Corpuscular Volume 88.2 fL (80-100); Platelet Count 306 X10^3/uL (150-400)
[2025-10-29 19:25] LABS: Alanine Aminotransferase 23 IU/L (<35); Albumin 4.6 g/dL (3.5-5.0); Albumin Globulin Ratio 1.6 (1.0-2.8); Alkaline Phosphatase 87 U/L (38-126); Blood Urea Nitrogen 17 mg/dL (7-17); Calcium 10.0 mg/dL (8.4-10.2); Carbon Dioxide 27 mmol/L (22-32); Chloride 100 mmol/L (98-107); Cholesterol 171 mg/dL (140-199); Estimated Glomerular Filt Rate > 60 mL/min (>60); Globulin 2.8 g/dL (1.7-4.1); Glucose 112 mg/dL (70-99); HDL Cholesterol 65 mg/dL (40-60); HEMOLYSIS 29 (0-50); Potassium 4.5 mmol/L (3.4-5.1); Sodium 137 mmol/L (137-145); Total Protein 7.4 g/dL (6.3-8.2); Triglycerides 121 mg/dL (35-150)
[2025-10-29 20:17] LABS: Digoxin 0.8 ng/mL (0.8-2.0)
== END ==
PROVIDERS: PCP Family Medicine; Visit Provider Internal Medicine Cardiovascular Disease
DX: Z51.81 Encounter for therapeutic drug level monitoring (principal); I10 Essential (primary) hypertension; I48.20 Chronic atrial fibrillation, unspecified; E78.5 Hyperlipidemia, unspecified
CPT/HCPCS: 80053; 80061; 80162; 85027